=== PATIENT | male | born 1980 | race Caucasian/White ===

== ENCOUNTER 2020-08-06 14:47 | Emergency (ER) | payer SELFPAY ==
[~2020-08-06] VITALS: Ht 188 cm; Wt 86.4 kg
[2020-08-06 15:08] VITALS: BP 116/81; Ht 188 cm; Wt 86.4 kg
[2020-08-06] MEDS ORDERED: AUGMENTIN 875-11 TAB PO (20:12)
== END 2020-08-06 20:41 | disposition home or self-care (01) ==
LOC: D.ER 14:47
DX: S61.212A Laceration without foreign body of right middle finger without damage to nail, initial encounter (principal); W45.8XXA Other foreign body or object entering through skin, initial encounter; Y93.9 Activity, unspecified; Y92.9 Unspecified place or not applicable